=== PATIENT | female | born 1985 | race Caucasian/White ===

== ENCOUNTER 2016-09-03 08:50 | Outpatient (CLI) ==
[2016-09-03 10:30] LABS: BASOPHILS % (AUTO) 0.2 % (0.0-3.0); EOSINOPHILS # (AUTO) 0.1 K/ul (0.0-0.7); EOSINOPHILS % (AUTO) 0.6 % (0.0-7.0); HEMATOCRIT 30.5 % (37.0-47.0); HEMOGLOBIN 9.9 g/dl (12.0-16.0); IMMATURE GRANULOCYTE % (AUTO) 0.8 % (0.0-5.0); LYMPHOCYTES # (AUTO) 1.7 K/uL (0.60-3.4); LYMPHOCYTES % (AUTO) 17.6 (10.0-50.0); MEAN CORPUSCULAR HEMOGLOBIN 27.7 pg (27.0-31.0); MEAN CORPUSCULAR HGB CONC 32.5 (31.8-35.4); MEAN CORPUSCULAR VOLUME 85.4 fl (81.0-99.0); MONOCYTES # (AUTO) 0.7 K/uL (0.4-2.0); MONOCYTES % (AUTO) 6.7 (0-10); NEUTROPHILS # (AUTO) 7.2 K/ul (2.0-6.9); NEUTROPHILS % (AUTO) 74.1; PLATELET COUNT 189 10^3/uL (140-440); RED BLOOD COUNT 3.57 10^6/ul (4.20-5.40); WHITE BLOOD COUNT 9.76 K/ul (4.6-10.2)
[2016-09-03 10:39] LABS: GLUCOSE 74 mg/dL (70-110)
[2016-09-04 07:35] LABS: HIV ANTIBODIES QUALITATIVE NONREACTIVE (Nonreactive)
== END 2016-09-03 08:51 | disposition home or self-care (01) ==
LOC: LAB 08:50
PROVIDERS: ATTEND Advanced Practice Midwife
DX: Z36 Encounter for antenatal screening of mother (principal); Z3A.27 27 weeks gestation of pregnancy
CPT/HCPCS: 36415; 82947; 85025; 86701

== ENCOUNTER 2017-08-23 23:12 | Emergency (ER) ==
[2017-08-23 23:25] VITALS: BP 117/81; TEMP 98.1; BMI 35.4
[2017-08-23] MEDS ORDERED: MOTRIN PO STA (23:29)
--- NOTE | 2017-08-24 00:31 | ED.PDOC ---
General ED Provider: Dr. CHRISTIAN MELENDEZ Chief Complaint: Ankle Pain/Injury Stated Complaint: Patient is a 32 year old state she slipped on ICE twisting her left foot Time Seen by Physician: 23:45 Mode of Arrival: Wheelchair Information Source: Patient Exam Limitations: No limitations Primary Care Provider: CANDICE BORGES Nursing and Triage Documentation Reviewed and Agree: Yes Reviewed sepsis parameters & appropriate labs ordered?: Yes System Inflammatory Response Syndrome: Not Applicable Sepsis Protocol: For patient's 13 years and over: Temp is 96.8 and below OR 101 and greater Pulse >90 BPM Resp >20/minute Acutely Altered Mental Status Are patient's symptoms suggestive of a new infection, such as: -Pneumonia -Skin, Soft Tissue -Endocarditis -UTI -Bone, Joint Infection -Implantable Device -Acute Abdominal Infection -Wound Infection -Meningitis -Blood Stream Catheter Infection -Unknown System Inflammatory Response Syndrome: Not Applicable Musculoskeletal Complaint Exam - Ankle/Foot Complaint/Exam Location of Injury: Reports: Left, Ankle, Foot Mechanism of Injury: Reports: Trauma (twisting injury ) Onset/Duration: 2 hours ago Symptoms Are: Reports: Still present Onset of Pain: Reports: Immediate, Post accident Initial Severity: Moderate Current Severity: Moderate Location: Reports: Discrete (dorsal lateral mid foot ) Character: Reports: Aching, Throbbing Alleviating: Reports: None Aggravating: Reports: Movement, Weight bearing Able to Bear Weight: Yes (but with pain ) Associated Signs and Symptoms: Reports: Swelling, Bruising Gout Risk Factors: Reports: None Related Surgical History: Reports: None Lower Extremity Findings: Present: Swelling, Tenderness, Limited range of motion Achilles Tendon Abnormality: No Tenderness: Present: Lateral malleolus, Midfoot Limited Range of Motion: Present: Dorsiflexion, Plantarflexion Ankle/Foot Picture: 1 - swelling and brusing Differential Diagnosis: Closed Fracture, Sprain, Strain Review of Systems - Review Of Systems Constitutional: Reports: No symptoms Eyes: Reports: No symptoms Ears, Nose, Mouth, Throat: Reports: No symptoms Respiratory: Reports: No symptoms Cardiac: Reports: No symptoms GI: Reports: No symptoms : Reports: No symptoms Musculoskeletal: Reports: Joint pain, Joint swelling Skin: Reports: No symptoms Neurological: Reports: No symptoms Endocrine: Reports: No symptoms Hematologic/Lymphatic: Reports: No symptoms All Other Systems: Reviewed and Negative Past Medical History - Past Medical History Previously Healthy: Yes Endocrine: Reports: None Cardiovascular: Reports: None Respiratory: Reports: None Hematological: Reports: None Gastrointestinal: Reports: None Genitourinary: Reports: None Neuro/Psych: Reports: None Musculoskeletal: Reports: None Cancer: Reports: None Last Menstrual Period: 2 weeks - Surgical History General Surgical History: Reports: Other (oral surgery ) - Family History Family History: Reports: None - Social History Smoking Status: Former smoker Hx Substance Use: No Alcohol Screening: Occasionally - Immunizations Tetanus Shot up to Date: No Physical Exam - Physical Exam Appearance: Well-appearing, Well-nourished Pain Distress: Moderate Eyes: Conjunctiva clear Respiratory: Respirations nonlabored Musculoskeletal: Normal strength, No calf tenderness, Limited ROM, Edema Skin: Warm, Dry, Normal color Neurological: Sensation intact, Motor intact, Alert, Oriented Psychiatric: Affect appropriate, Mood appropriate Interpretation - Radiology Interpretation Radiology Interpretation By: ED Physician Radiology Results: Negative Exam Interpreted: Other (left ankle and foot ) Critical Care Note - Critical Care Note Total Time (mins): 0 Course - Course Orders, Labs, Meds: Orders Category Date Time Status ANIA [ED ANIA WRAP] .ONCE EMERGENCY 08/24/17 00:33 Active CRUTCHES [ED CRUTCHES] .ONCE EMERGENCY 08/24/17 00:32 Active ED ANIA WRAP .ONCE EMERGENCY 08/24/17 00:32 Active Ice [ED APPLY ICE AFFECTED AREA] .ONCE EMERGENCY 08/23/17 23:23 Active Ibuprofen [Motrin] MEDS 08/23/17 23:29 Discontinued 600 mg PO ONCE STA ANKLE, LEFT MIN 3 VIEWS Stat RADS 08/23/17 23:22 Taken FOOT, LEFT 3 VIEWS Stat RADS 08/23/17 23:28 Taken Medications Discontinued Medications Generic Name Dose Route Start Last Admin Trade Name Freq PRN Reason Stop Dose Admin Ibuprofen 600 mg 08/23/17 23:29 08/23/17 23:43 Motrin PO 08/23/17 23:30 600 mg ONCE STA Administration Vital Signs: Temp Pulse Resp BP Pulse Ox 08/23/17 23:13 98.1 F 82 18 117/81 99 Departure - Departure Time of Disposition: 00:30 Disposition: HOME SELF-CARE Discharge Problem: Foot sprain Qualifiers: Encounter type: initial encounter Laterality: left Qualified Code(s): S93.602A - Unspecified sprain of left foot, initial encounter Left ankle sprain Qualifiers: Encounter type: initial encounter Involved ligament of ankle: other ligament Qualified Code(s): S93.492A - Sprain of other ligament of left ankle, initial encounter Instructions: Ankle Sprain (ED), Foot Sprain (ED) Condition: Fair Pt referred to PMD for follow-up: Yes IPMP verified?: No Additional Instructions: Keep foot elevated Take motrin as needed for pain Prescriptions: Ibuprofen [Motrin] 600 mg PO Q6H PRN #30 tablet PRN Reason: Analgesia Allergies/Adverse Reactions: Allergies No Known Drug Allergies Adverse Reaction (Verified 08/23/17 23:59) Home Medications: Ambulatory Orders Ibuprofen [Motrin] 600 mg PO Q6H PRN #30 tablet 08/24/17 Disposition Discussed With: Patient, Family
--- NOTE | 2017-08-24 07:34 | DI ---
EXAM: Left ankle four views HISTORY: Injury from twisting FINDINGS: Bone and joint structures appear normal. There is no displaced fracture or joint dislocat ion seen. General bone density and soft tissues are within normal limits. IMPRESSION: Findings within normal limits.
--- NOTE | 2017-08-24 07:35 | DI ---
EXAM: LEFT FOOT, 3 VIEWS HISTORY: Pain after twisting injury FINDINGS: Bone and joint structures appear normal. No fracture, joint dislocation or joint effusio n is seen. Bone density and soft tissues are within normal limits. IMPRESSION: Within normal limits.
== END 2017-08-24 00:55 | disposition home or self-care (01) ==
LOC: ED 23:12
DX: S93.602A Unspecified sprain of left foot, initial encounter (principal); S93.492A Sprain of other ligament of left ankle, initial encounter; W00.0XXA Fall on same level due to ice and snow, initial encounter
CPT/HCPCS: 99283